=== PATIENT | male | born 1990 | race Caucasian/White ===

== ENCOUNTER → 2018-04-04 | Outpatient (CLI) | payer OTHER ==
[2018-04-04 11:01] LABS: ALT 48 U/L (21-72); AST 22 U/L (17-59); Blood Urea Nitrogen 15 mg/dL (9-20); C Reactive Protein 6.5 mg/L (<10.0); Uric Acid 7.1 mg/dL (3.5-8.5)
[2018-04-04 16:25] LABS: Rheumatoid Factor <4 IU/mL (0-15)
[2018-04-05 10:30] LABS: HLA B27 NEGATIVE
== END | disposition home or self-care (01) ==
LOC: LABWHC1 10:22
PROVIDERS: ATTEND Podiatrist
DX: M06.9 Rheumatoid arthritis, unspecified (principal)
CPT/HCPCS: 36415; 82565; 84450; 84460; 84520; 84550; 85652; 86038; 86140; 86431; 86812

== ENCOUNTER 2019-05-18 18:11 | Emergency (ER) | payer OTHER ==
[2019-05-18 18:27] VITALS: BP 124/80; PULSE 95; RESP 20; TEMP 98
[2019-05-18] MEDS ORDERED: TOPICAL SKIN ADHESIVE 1 EACH AMP TOPICAL ONE (18:37)
--- NOTE | 2019-05-18 18:49 | ED ---
General Adult HPI - General Chief complaint: Wound/Laceration Stated complaint: Thumb laceration Time Seen by Provider: 05/18/19 18:31 Source: patient, RN notes reviewed Mode of arrival: ambulatory Limitations: no limitations - History of Present Illness Initial comments: 28-year-old male presents to the emergency department for a chief of right thumb laceration. Patient states he was using an apple core when it slipped and cut the distal aspect of his right thumb. States he tried to glue it but it wouldn't stop bleeding. States he is up-to-date on tetanus. Denies any loss of sensation in the right thumb. Denies any difficulty moving the right thumb. States he did clean it out.Patient has no other complaints at this time including shortness of breath, chest pain, abdominal pain, nausea or vomiting, headache, or visual changes. - Related Data Allergies Allergy/AdvReac Type Severity Reaction Status Date / Time No Known Allergies Allergy Verified 05/18/19 18:26 Review of Systems ROS Statement: Those systems with pertinent positive or pertinent negative responses have been documented in the HPI. ROS Other: All systems not noted in ROS Statement are negative. Past Medical History Past Medical History: No Reported History History of Any Multi-Drug Resistant Organisms: None Reported Past Surgical History: No Surgical Hx Reported Past Psychological History: No Psychological Hx Reported Smoking Status: Current every day smoker Past Alcohol Use History: None Reported Past Drug Use History: None Reported General Exam Limitations: no limitations General appearance: alert, in no apparent distress Head exam: Present: atraumatic, normocephalic, normal inspection Eye exam: Present: normal appearance, PERRL, EOMI. Absent: scleral icterus, conjunctival injection, periorbital swelling ENT exam: Present: normal exam, mucous membranes moist Neck exam: Present: normal inspection, full ROM. Absent: tenderness, meningismus, lymphadenopathy Respiratory exam: Present: normal lung sounds bilaterally. Absent: respiratory distress, wheezes, rales, rhonchi, stridor Cardiovascular Exam: Present: regular rate, normal rhythm, normal heart sounds. Absent: systolic murmur, diastolic murmur, rubs, gallop, clicks Extremities exam: Present: full ROM (full Range motion of the right thumb including the MCP and IP joint.), normal capillary refill (Capillary refill less than 2 seconds in the right thumb, radial pulse 2+.), other (Patient has a 1 cm superficial laceration noted to the finger pad of the right thumb.). Absent: tenderness, pedal edema, joint swelling, calf tenderness Course Vital Signs 05/18/19 18:25 Temperature 98.0 F Pulse Rate 95 Respiratory 20 Rate Blood Pressure 124/80 O2 Sat by Pulse 97 Oximetry Procedures - Laceration Laceration #1 Consent Obtained: verbal consent Indication: laceration Site: other (Right thumb) Description: linear Depth: simple, single layer Pre-repair: irrigated extensively (With saline pressure irrigation) Type of Sutures: other (Exofin) Medical Decision Making - Medical Decision Making Patient has a superficial laceration noted to the right finger pad of the right thumb. Neurovascular status intact. I did offer to stitch this however patient prefers glue. Exofin was applied after his was cleaned out. Wound is well approximated. Patient is up-to-date on tetanus. He will follow up with primary care in 1-2 days and return if he has any worsening symptoms. Disposition Clinical Impression: Laceration Disposition: HOME SELF-CARE Condition: Good Instructions (If sedation given, give patient instructions): Laceration (ED), Skin Adhesive Care (ED) Additional Instructions: Please follow up with primary care in 1-2 days. Monitor for signs of infection such as spreading or streaking redness and return if these occur. Return if you have any other worsening symptoms. Is patient prescribed a controlled substance at d/c from ED?: No Referrals: Jonh Stone DO [Primary Care Provider] - 1-2 days Time of Disposition: 18:52
== END 2019-05-18 18:55 | disposition home or self-care (01) ==
LOC: EC 18:11
DX: S61.011A Laceration without foreign body of right thumb without damage to nail, initial encounter (principal); F17.200 Nicotine dependence, unspecified, uncomplicated; W26.8XXA Contact with other sharp object(s), not elsewhere classified, initial encounter; Y93.89 Activity, other specified
CPT/HCPCS: 12001; 99282

== ENCOUNTER 2019-05-20 01:25 | Emergency (ER) | payer OTHER ==
[2019-05-20 01:31] VITALS: BP 130/82; PULSE 82; RESP 18; TEMP 98.1
--- NOTE | 2019-05-20 01:43 | ED ---
Wound/Laceration HPI - General Chief Complaint: Wound/Laceration Stated Complaint: Thumb lac-revisit Time Seen by Provider: 05/20/19 01:35 Source: patient Mode of arrival: ambulatory Limitations: no limitations - History of Present Illness Initial Comments: 28-year-old male patient presents to the emergency department today for evaluation of laceration to the right thumb. Patient states he cut it on Saturday with an apple corer. Patient was seen and evaluated here yesterday for this and did have the laceration glued. Patient states that the laceration opened today and has been intermittently bleeding since. Denies any significant pain to the area. Denies any drainage of pus. Denies any use of anticoagulant or antiplatelet medications. Denies any other injuries. Patient denies any headache, neck pain, back pain, chest pain, shortness of breath, dizziness, weakness, abdominal pain, nausea, vomiting, or difficulties with bowel movements or urination. - Related Data Allergies Allergy/AdvReac Type Severity Reaction Status Date / Time No Known Allergies Allergy Verified 05/20/19 01:31 Review of Systems ROS Statement: Those systems with pertinent positive or pertinent negative responses have been documented in the HPI. ROS Other: All systems not noted in ROS Statement are negative. Past Medical History Past Medical History: No Reported History History of Any Multi-Drug Resistant Organisms: None Reported Past Surgical History: No Surgical Hx Reported Past Psychological History: No Psychological Hx Reported Smoking Status: Current every day smoker Past Alcohol Use History: None Reported Past Drug Use History: None Reported General Exam Limitations: no limitations General appearance: alert, in no apparent distress, other (Physical well- developed, well-nourished adult male patient in no acute distress. Vital signs upon presentation are temperature 98.1F, pulse 82, respirations 18, blood pressure 130/82, pulse ox 96% on room air.) Eye exam: Present: normal appearance, PERRL, EOMI. Absent: scleral icterus, conjunctival injection, periorbital swelling Respiratory exam: Present: normal lung sounds bilaterally. Absent: respiratory distress, wheezes, rales, rhonchi, stridor Cardiovascular Exam: Present: regular rate, normal rhythm, normal heart sounds. Absent: systolic murmur, diastolic murmur, rubs, gallop, clicks Extremities exam: Present: other (Left thumb laceration, 2 cm, no active bleeding. Skin is pink, warm, dry. Cap refills less than 3 seconds. Radial pulses 2+ and equal bilaterally. No erythema or warmth. Full range of motion intact.). Absent: normal inspection Neurological exam: Present: alert, oriented X3, CN II-XII intact Psychiatric exam: Present: normal affect, normal mood Skin exam: Present: warm, dry, intact, normal color. Absent: rash Course Vital Signs 05/20/19 01:28 Temperature 98.1 F Pulse Rate 82 Respiratory 18 Rate Blood Pressure 130/82 O2 Sat by Pulse 96 Oximetry Medical Decision Making - Medical Decision Making 28-year-old male patient presents to the emergency department today for evaluation of laceration. Patient did have the laceration repaired utilizing skin adhesive yesterday. States today the laceration broke open and has been bleeding intermittently. Given the timing of the laceration we will leave open to heal by secondary intention. Did apply dressing. He is instructed to keep the wound clean and dry. Discussed wound care. Educated regarding signs or symptoms of infection. He is instructed to follow-up with his primary care physician for recheck in 1-2 days. Return parameters discussed in detail. He verbalizes understanding and agrees with this plan. Disposition Clinical Impression: Laceration of right thumb Disposition: HOME SELF-CARE Condition: Good Instructions (If sedation given, give patient instructions): Laceration (ED) Additional Instructions: Keep wound clean and dry. Monitor for redness, swelling, drainage of pus, fever, or chills. Follow up with the primary care physician for recheck in 1-2 days. Return for any other new, worsening, or concerning symptoms. Is patient prescribed a controlled substance at d/c from ED?: No Referrals: Jonh Stone DO [Primary Care Provider] - 1-2 days Time of Disposition: 01:43
== END 2019-05-20 02:04 | disposition home or self-care (01) ==
LOC: EC 01:25
DX: S61.011D Laceration without foreign body of right thumb without damage to nail, subsequent encounter (principal); F17.200 Nicotine dependence, unspecified, uncomplicated; W27.8XXD Contact with other nonpowered hand tool, subsequent encounter
CPT/HCPCS: 99282

== ENCOUNTER 2019-08-01 10:47 | Inpatient (IN) | payer OTHER ==
[2019-08-01] MEDS ORDERED: KETOROLAC 30 MG/ML 1 ML VIAL IVP STA ×2 (10:58→11:07)
[2019-08-01] MEDS ORDERED: SODIUM CHLORIDE 0.9% 1,000 ML IV STA (10:58)
[2019-08-01] MEDS ORDERED: ASPIRIN 81 MG PO STA (11:04)
--- NOTE | 2019-08-01 11:06 | ED ---
Chest Pain HPI - General Source: patient, RN notes reviewed, old records reviewed Mode of arrival: wheelchair Limitations: no limitations <Lexi Johnson - Last Filed: 08/01/19 11:38> <Bandar Gan - Last Filed: 08/01/19 12:19> - General Chief Complaint: Chest Pain Stated Complaint: Chest pain Time Seen by Provider: 08/01/19 10:53 - History of Present Illness Initial Comments: This is a 28-year-old male who presents emergency department today for evaluation for concern for waking up with sternal chest pain. Patient reports pain is worse with taking deep breath. Patient reports that he had his teeth on his upper jaw are removed 2 days ago. He states there had pain such as this sharp and crushing pain before. Patient states he does have some pain down his left arm as well. Patient states he does feel somewhat weak lightheaded and nauseated. Patient reports he's had a history of pericarditis in the past. He is a smoker. His previous doubt this with Dr. Nicolas. (Lexi Johnson) - Related Data Home Medications Medication Instructions Recorded Confirmed Acetaminophen-Codeine 300-30mg 1 tab PO QID PRN 08/01/19 08/01/19 [Tylenol w/codeine #3] Amoxicillin 500 mg PO TID 08/01/19 08/01/19 Ibuprofen [Motrin] 800 mg PO Q6H PRN 08/01/19 08/01/19 Allergies Allergy/AdvReac Type Severity Reaction Status Date / Time No Known Allergies Allergy Verified 08/01/19 11:08 Review of Systems ROS Other: All systems not noted in ROS Statement are negative. <Lexi Johnson - Last Filed: 08/01/19 11:38> ROS Other: All systems not noted in ROS Statement are negative. <Bandar Gan - Last Filed: 08/01/19 12:19> ROS Statement: Those systems with pertinent positive or pertinent negative responses have been documented in the HPI. EKG Findings - EKG Comments: EKG Findings:: EKG shows normal sinus rhythm with ST elevations or anterolateral injury or acute infarct. ST shows inferior injury. Ventricular rate of 73 bpm. Pulse 124. Stressors 903 QT QTc is 3:30/35 most seconds. Interpretation is acute MS or STEMI. <Lexi Johnson - Last Filed: 08/01/19 11:38> Past Medical History Past Medical History: No Reported History History of Any Multi-Drug Resistant Organisms: None Reported Past Surgical History: No Surgical Hx Reported Past Psychological History: No Psychological Hx Reported Smoking Status: Current every day smoker Past Alcohol Use History: None Reported Past Drug Use History: None Reported <Lexi Johnson - Last Filed: 08/01/19 11:38> General Exam Limitations: no limitations General appearance: alert, in no apparent distress Head exam: Present: atraumatic, normocephalic, normal inspection Eye exam: Present: normal appearance, PERRL, EOMI. Absent: scleral icterus, conjunctival injection, periorbital swelling ENT exam: Present: normal exam, mucous membranes moist Neck exam: Present: normal inspection. Absent: tenderness, meningismus, lymphadenopathy Respiratory exam: Present: normal lung sounds bilaterally. Absent: respiratory distress, wheezes, rales, rhonchi, stridor <Lexi Johnson - Last Filed: 08/01/19 11:38> - General Exam Comments Initial Comments: 28-year-old male. Patient appears somewhat pale. (Lexi Johnson) Course <Bandar Gan - Last Filed: 08/01/19 12:19> Vital Signs 08/01/19 08/01/19 08/01/19 10:50 11:13 11:15 Temperature 98.6 F Pulse Rate 76 89 78 Respiratory 16 18 17 Rate Blood Pressure 102/69 113/73 105/70 O2 Sat by Pulse 98 99 Oximetry 08/01/19 08/01/19 11:16 11:31 Temperature Pulse Rate 80 Respiratory 18 17 Rate Blood Pressure 111/78 O2 Sat by Pulse 99 Oximetry - Reevaluation(s) Reevaluation #1: 08/01/19 11:00 Patient immediately evaluated after EKG is performed. There is ST segment elevation lateral precordial leads as well as lead 1, and depression in aVR and V1. seed laboratory assistant is activated, I discussed case with cardiology Dr. Nicolas. Stat echo was ordered. He is given aspirin and Toradol. Dr. Nicolas is able to evaluate the patient in the emergency department and believes this is more likely pericarditis. He cancels the slab conditioner supervisor activation. (Bandar Gan) Reevaluation #2: 08/01/19 12:19 EKG obtained at 1111 showing normal sinus rhythm, persistent ST segment elevation in the lateral precordial leads as well as lead 1, lead 2, and aVL. Depression in aVR and V1. Rate of 83, NC interval 124, QRS duration 86, QTC 406 (Bandar Gan) Chest Pain MDM <Lexi Johnson - Last Filed: 08/01/19 11:38> - MDM 28-year-old male presents with onset of substernal chest pain. Symptoms started upon awakening this morning. He said history of pericarditis in the past. He is a smoker. EKG showed initial ST elevation concerning for acute MS. Patient case was probably discussed with Dr. Carmichael whom activated STEMI. Dr. Nicolas was here to evaluate the Patient is more consistent with pericarditis. Patient is given Toradol and aspirin at this time. Patient will be under medical management slab conditioner supervisor was canceled. Patient will be admitted at this time. Patient was given colchicine as well per Dr. Nicolas. (Lexi Johnson) Disposition Is patient prescribed a controlled substance at d/c from ED?: No Time of Disposition: 11:40 <Lexi Johnson - Last Filed: 08/01/19 11:38> <Bandar Gan - Last Filed: 08/01/19 12:19> Clinical Impression: Pericarditis Disposition: ADMITTED IP TO THIS HOSP Condition: Stable
[2019-08-01 11:10] LABS: Basophils # (A) 0.1 k/uL (0-0.2); Basophils % (A) 0 %; Eosinophils # (A) 0.2 k/uL (0-0.7); Eosinophils % (A) 2 %; HCT 40.9 % (39.0-53.0); HGB 14.1 gm/dL (13.0-17.5); Lymphocytes # (A) 2.3 k/uL (1.0-4.8); Lymphocytes % (A) 18 %; MCH 31.5 pg (25.0-35.0); MCHC 34.5 g/dL (31.0-37.0); MCV 91.4 fL (80.0-100.0); Mean Platelet Volume 8.8; Monocytes # (A) 1.2 k/uL (0-1.0); Monocytes % (A) 9 %; Neutrophils # (A) 8.6 k/uL (1.3-7.7); Neutrophils % (A) 67 %; Platelet Count 185 k/uL (150-450); RBC 4.47 m/uL (4.30-5.90); RDW 11.8 % (11.5-15.5); WBC 12.8 k/uL (3.8-10.6)
--- NOTE | 2019-08-01 11:20 | XR ---
EXAMINATION TYPE: XR chest 1V DATE OF EXAM: 08/01/2019 HISTORY: Chest Pain. REFERENCE: Previous study dated 07/25/2005. FINDINGS: The lungs remain clear. Pleural spaces are clear. The heart is not enlarged. IMPRESSION: NO ACTIVE INTRATHORACIC DISEASE.
[2019-08-01] MEDS ORDERED: HYDROmorphone 0.5 MG/0.5 ML SYRINGE IVP STA ×4 (11:21→19:34)
[2019-08-01 11:25] LABS: D-Dimer 0.36 mg/L FEU (<0.60); INR 0.9 (<1.2); Partial Thromboplastin Time 27.2 sec (22.0-30.0); Prothrombin Time 9.8 sec (9.0-12.0)
[2019-08-01] MEDS ORDERED: INDOMETHACIN 25 MG CAP PO STA (11:28)
[2019-08-01] MEDS ORDERED: HEPARIN SODIUM,PORCINE 5,000 UNIT/ML 1 ML VIAL SQ SCH (11:30)
[2019-08-01 11:35] LABS: ALT 36 U/L (4-49); AST 93 U/L (17-59); African American GFR (CKD) >90 (>60 ml/min/1.73 sqM); Alkaline Phosphatase 76 U/L (38-126); Anion Gap 9 mmol/L; Blood Urea Nitrogen 13 mg/dL (9-20); Calcium 8.9 mg/dL (8.4-10.2); Carbon Dioxide 26 mmol/L (22-30); Chloride 103 mmol/L (98-107); Glucose 123 mg/dL (74-99); Non-African American GFR(CKD) >90 (>60 ml/min/1.73 sqM); Potassium 3.6 mmol/L (3.5-5.1); Sodium 138 mmol/L (137-145); Total Bilirubin 0.6 mg/dL (0.2-1.3)
[2019-08-01] MEDS ORDERED: POTASSIUM CHLORIDE ER 20 MEQ TAB.ER PO STA (11:36)
[2019-08-01] MEDS ORDERED: NITROGLYCERIN SL TABS 0.4 MG TAB SUBLINGUAL PRN (11:43)
[2019-08-01] MEDS ORDERED: HEPARIN SODIUM,PORCINE 5,000 UNIT/ML 1 ML VIAL IV STA (12:21)
[2019-08-01] MEDS ORDERED: HEPARIN SOD,PORK IN 0.45% NACL 25,000 UNIT in 0.45% NACL 1 250ML.BAG IV SCH (12:30)
--- NOTE | 2019-08-01 12:51 | CONS ---
CONSULTATION This patient is a 28-year-old gentleman who apparently has a remote history in 2007 of pericarditis. He came into the hospital having woken up from sleep around 5:00 with discomfort in the chest. He complained that the pain woke him up and it is more or less sharp in nature, worse when he lies back, better leaning forward and also respirophasic. When he takes a deep breath, he does have discomfort in the chest. A STEMI alert was called, but I went and reviewed the EKG, noted that there was a J-point elevation with concavity in almost all leads with a UT depression, and clinical picture was more of pericarditis. I am recommending that we not darby him into the specialist employee labor relations and instead obtain echocardiogram and additional blood work, and if troponin shows a significant rise, I would cath him, but I would not darby him to the specialist employee labor relations at this time. I explained this to the patient as well as his . I will order an echocardiogram, give him some nonsteroidals and Dilaudid for pain control and colchicine. PAST MEDICAL HISTORY: Remote history of pericarditis. He recently in the last week had some dental work performed and has not been eating well. ALLERGIES: NONE. MEDICATIONS: Medications include amoxicillin and ibuprofen. PHYSICAL EXAMINATION: Blood pressure is 118/70, pulse rate is 70 per minute. HEENT unremarkable. Fundus was not examined by me. Neck is supple. JVD is unremarkable. No carotid bruit. Heart exam reveals S1, S2 heard normally. No rub, murmur or gallop. Lungs are clear. Abdomen is soft, nontender. Lower extremities reveal palpable pulses. No edema. Central nervous system is normal. EKG revealed a sinus mechanism with J-point prominence and ST elevation in leads I, aVL, as well as V5 and V6. There is some concavity and there is UT depression. IMPRESSION: 1. Chest pain syndrome, pleuritic in nature, with respirophasic quality of pain and EKG suggestive of probable pericarditis. 2. Cannot exclude myocardial ischemia, but seems less likely. 3. History of remote pericarditis. RECOMMENDATIONS: I am recommending an echocardiogram and troponins, and if the patient's quality of chest pain changes or if the troponin is significantly elevated, I will perform cardiac cath but will first do an echocardiogram, and based on findings make recommendations. Discussed my thoughts in detail with the patient and his . Thank you very much for the consult. RD / IJN: [id number] /
[2019-08-01] MEDS ORDERED: IV FLUID CONTINUATION 950 ML IV ONE (13:32)
[2019-08-01] MEDS ORDERED: LIDOCAINE 1% INJ 10MG/ML (20 ML MDV) ONE (13:45)
[2019-08-01] MEDS ORDERED: VERAPAMIL 2.5 MG/ML 2 ML AMP ONE (13:45)
[2019-08-01] MEDS: MIDAZOLAM 2 MG/2 ML VIAL IV ONE ×2 (13:58→14:13)
[2019-08-01] MEDS ORDERED: LIDOCAINE 1% INJ 10MG/ML (20 ML MDV) SQ ONE (14:09)
[2019-08-01] MEDS ORDERED: HEPARIN SODIUM 1,000 UN/ML (10ML VL) ONE (14:11)
[2019-08-01] MEDS ORDERED: VERAPAMIL SYRINGE (5 MG/10 ML) IV ONE (14:12)
[2019-08-01] MEDS ORDERED: HEPARIN SODIUM 1,000 UN/ML (10ML VL) IV ONE (14:12)
[2019-08-01] MEDS ORDERED: NITROGLYCERIN 1000MCG/10ML SYRINGE INTRACORON ONE (14:19)
[2019-08-01] MEDS ORDERED: IOPAMIDOL-370 100ML BTL INJ ONE (14:23)
[2019-08-01] MEDS: SODIUM CHLORIDE 0.9% 1,000 ML IV SCH ×2 (15:21→22:53)
--- NOTE | 2019-08-01 15:47 | CC ---
CARDIAC CATHETERIZATION REPORT DATE OF SERVICE: 08/01/2019 PROCEDURE: Left heart catheterization and coronary angiography. PERFORMED BY: Dr. Neha Nicolas. Moderate conscious sedation time was 16 minutes. Patient was administered Versed. His oxygen saturation, hemodynamics and EKG were monitored closely. CLINICAL INFORMATION: Nick Beck is a 28-year-old gentleman admitted through the emergency room with chest pain, pleuritic in nature. Clinical picture was that of pericarditis, but his troponin went up to 15 and he continued to have pain. Therefore he was advised cardiac cath after due discussion regarding rationale, risks, benefits and options. PROCEDURE NOTE: Under local anesthesia and strict aseptic precautions, a 6-Greek introducer was placed in the right radial artery. Using a standard right and a JL3.5 catheters, I performed selective coronary angiography, and the same right catheter was used to check LV pressures. LV gram was not performed. Sheath was taken out and TR band applied as per protocol. Saturation in the fingers of the right hand was 96%. Patient tolerated the procedure well without complications. He received some intracoronary nitroglycerin. He received intravenous heparin as per protocol. CARDIAC CATHETERIZATION FINDINGS: The left ventricular end-diastolic pressure was 16 mmHg without any gradient across the aortic valve. CORONARY ANGIOGRAPHY FINDINGS: RIGHT CORONARY ARTERY: Large dominant vessel. No significant disease. Distally bifurcates into larger PDA. Smaller PLV has minor irregularities, but no significant obstructive disease is noted. LEFT MAIN CORONARY ARTERY: This is a short, patent, disease-free vessel that immediately bifurcates into LAD and circumflex. LEFT ANTERIOR DESCENDING CORONARY ARTERY: This is a large-caliber, large-distribution vessel. Very high first diagonal comes off free of significant disease. It almost runs in the circumflex distribution, has no significant disease. LAD then continues on and gives off a second diagonal which is also free of significant disease, then gives off several septal branches, and in the distal one fourth the LAD is small in caliber, has some diffuse disease but no significant obstruction. The first diagonal is large in distribution, almost goes laterally in the circumflex distribution. No significant disease. Second diagonal is also free of significant disease. Distal circumflex has diffuse disease. LEFT POSTERIOR CIRCUMFLEX CORONARY ARTERY: Very small nondominant vessel gives off a single obtuse marginal and an AV groove branch, has minor irregularities. Left ventriculogram was not performed. FINAL IMPRESSION: This patient has a right-dominant system. No significant disease in the RCA or in the small nondominant circumflex. LAD has 2 large diagonal branches free of significant disease. The distal one fourth of LAD has diffuse disease but no significant obstructive CAD noted. Filling pressures are slightly elevated, but there is no gradient across the aortic valve. RECOMMENDATIONS: Findings were discussed with the patient and his . I am recommending that we will treat his myopericarditis with colchicine, defer intravenous heparin and advise the patient that he should refrain from smoking and use of marijuana because there was a significant spasm. After I gave intracoronary nitroglycerin, the left coronary system, specifically the LAD and its branches, were quite large. This was explained to the patient and his . RD / FRANKLINN: [id number] /
[2019-08-01] MEDS: COLCHICINE 0.6 MG EACH PO SCH ×2 (16:23→21:11)
--- NOTE | 2019-08-01 16:28 | ECHOF ---
Referral Reason:chest pain, stemi, pericarditis hx MEASUREMENTS -------- HEIGHT: 180.3 cm WEIGHT: 85.7 kg BP: 111/78 RVIDd: 3.4 cm (< 3.3) IVSd: 1.1 cm (0.6 - 1.1) LVIDd: 4.8 cm (3.9 - 5.3) LVPWd: 0.9 cm (0.6 - 1.1) IVSs: 1.4 cm LVIDs: 3.9 cm LVPWs: 1.3 cm LA Diam: 3.8 cm (2.7 - 3.8) Ao Diam: 3.0 cm (2.0 - 3.7) AV Cusp: 2.2 cm (1.5 - 2.6) MV EXCURSION: 18.221 mm (> 18.000) MV EF SLOPE: 176 mm/s (70 - 150) EPSS: 0.4 cm MV E Landon: 0.77 m/s MV DecT: 100 ms MV A Landon: 0.51 m/s MV E/A Ratio: 1.52 RAP: 5.00 mmHg RVSP: 23.14 mmHg FINDINGS -------- Sinus rhythm. This was a technically good study. The left ventricular size is normal. Left ventricular wall thickness is normal. Overall left vent ricular systolic function is normal with, an EF between 55 - 60 %. The right ventricle is mildly enlarged. The left atrial size is normal. The right atrium is normal in size. Interatrial and interventricular septum intact. The aortic valve is trileaflet and appears structurally normal. The mitral valve is normal. The tricuspid valve appears structurally normal. There is no pulmonic regurgitation present. The aortic root size is normal. Normal inferior vena cava with normal inspiratory collapse consistent with estimated right atrial pre ssure of 5 mmHg. There is no pericardial effusion. CONCLUSIONS -------- 1. Sinus rhythm. 2. This was a technically good study. 3. The left ventricular size is normal. 4. Left ventricular wall thickness is normal. 5. Overall left ventricular systolic function is normal with, an EF between 55 - 60 %. 6. The right ventricle is mildly enlarged. 7. The left atrial size is normal. 8. The right atrium is normal in size. 9. Interatrial and interventricular septum intact. 10. The aortic valve is trileaflet and appears structurally normal. 11. The mitral valve is normal. 12. The tricuspid valve appears structurally normal. 13. There is no pulmonic regurgitation present. 14. The aortic root size is normal. 15. Normal inferior vena cava with normal inspiratory collapse consistent with estimated right atrial pressure of 5 mmHg. 16. There is no pericardial effusion. DIRECTOR OF DEMENTIA OPERATIONS: Catihe Max RDCS
[2019-08-01] MEDS: METOPROLOL TARTRATE 12.5 MG TAB PO SCH ×3 (17:07→21:11)
[2019-08-01] MEDS: Acetaminophen-Codeine 300-30mg TAB PO PRN (17:36)
[2019-08-01] MEDS: PANTOPRAZOLE 40 MG TABLET PO SCH (17:37)
[2019-08-01] MEDS: HEPARIN SODIUM,PORCINE 5,000 UNIT/ML 1 ML VIAL SQ SCH ×2 (17:37→22:48)
[2019-08-01] MEDS: IBUPROFEN 800 MG TAB PO PRN (18:46)
--- NOTE | 2019-08-01 20:17 | CT ---
EXAMINATION TYPE: CT angio chest DATE OF EXAM: 08/01/2019 COMPARISON: HISTORY: chest pain. dissection vs PE CT DLP: 938.1 mGycm Automated exposure control for dose reduction was used. CONTRAST: Performed without and with IV Contrast, patient injected with 100 mL of Isovue 370. There are 3-D post processed images. There is some patchy infiltrate and atelectasis at the lung bases. There is no pleural effusion. Hear t size is normal. There is no pericardial effusion. There is normal contrast opacification of the pul monary arteries. There are no filling defects. Thoracic aorta appears normal. There is no mediastinal adenopathy. There are no hilar masses. There are a few bronchial lymph nodes that measure up to 1 cm. Bony thorax is intact. IMPRESSION: No evidence of pulmonary embolism. Bilateral lower lobe pulmonary infiltrates and atelectasis.
[2019-08-01] MEDS ORDERED: MELATONIN 3 MG TABLET PO PRN (21:05)
[2019-08-01] MEDS: AMOXICILLIN 500 MG CAP PO SCH (21:12)
[2019-08-02] MEDS ORDERED: SODIUM CHLORIDE 0.9% 500 ML 250 ML IV ONE (02:42)
[2019-08-02] MEDS ORDERED: SODIUM CHLORIDE 0.9% 1,000 ML IV SCH (02:45)
[2019-08-02] MEDS: IBUPROFEN 800 MG TAB PO PRN (04:56)
[2019-08-02 06:09] LABS: Basophils % (A) 1 %; Eosinophils # (A) 0.1 k/uL (0-0.7); Eosinophils % (A) 2 %; HCT 33.4 % (39.0-53.0); HGB 11.3 gm/dL (13.0-17.5); Lymphocytes # (A) 2.4 k/uL (1.0-4.8); Lymphocytes % (A) 40 %; MCH 31.6 pg (25.0-35.0); Monocytes # (A) 0.5 k/uL (0-1.0); Monocytes % (A) 7 %; Neutrophils # (A) 2.8 k/uL (1.3-7.7); Neutrophils % (A) 46 %; Platelet Count 133 k/uL (150-450); RBC 3.59 m/uL (4.30-5.90); WBC 6.1 k/uL (3.8-10.6)
[2019-08-02] MEDS: PANTOPRAZOLE 40 MG TABLET PO SCH (06:09)
[2019-08-02 06:20] LABS: African American GFR (CKD) >90 (>60 ml/min/1.73 sqM); Anion Gap 5 mmol/L; Blood Urea Nitrogen 7 mg/dL (9-20); Calcium 8.4 mg/dL (8.4-10.2); Carbon Dioxide 25 mmol/L (22-30); Chloride 107 mmol/L (98-107); Cholesterol 120 mg/dL (<200); Glucose 107 mg/dL (74-99); HDL Cholesterol 24 mg/dL (40-60); LDL Cholesterol,Calculated 63 mg/dL (0-99); Non-African American GFR(CKD) >90 (>60 ml/min/1.73 sqM); Sodium 137 mmol/L (137-145); Triglycerides 163 mg/dL (<150)
[2019-08-02] MEDS: METOPROLOL TARTRATE 12.5 MG TAB PO SCH ×2 (08:41→20:31)
[2019-08-02] MEDS: Acetaminophen-Codeine 300-30mg TAB PO PRN ×3 (08:44→20:31)
[2019-08-02] MEDS: COLCHICINE 0.6 MG EACH PO SCH ×2 (08:45→20:30)
[2019-08-02] MEDS: HEPARIN SODIUM,PORCINE 5,000 UNIT/ML 1 ML VIAL SQ SCH ×2 (08:45→20:30)
[2019-08-02] MEDS: AMOXICILLIN 500 MG CAP PO SCH ×3 (08:45→20:30)
[2019-08-02] MEDS ORDERED: ASPIRIN 81 MG PO SCH (09:00)
[2019-08-02] MEDS ORDERED: ASPIRIN 325 MG TAB PO SCH (09:00)
--- NOTE | 2019-08-02 12:12 | P.PN ---
Subjective This is a pleasant 28-year-old male with history of pericarditis past, chronic nicotine dependence and he did admit to regular marijuana use. He presented to the hospital with significant pleuritic chest pain, EKG changes suggestive of pericarditis and troponin elevation. He underwent cardiac catheterization yesterday with Dr. Nicolas revealing RCA with no significant disease, left main with no significant disease, LAD with no significant obstructive disease. He states he had a particularly uncomfortable evening with frequent bouts of significant pleuritic chest pain. He was given Dilaudid which did relieve his pain briefly. He is seen and examined sitting up in bed in no acute distress. He is currently chest pain-free. Denies shortness of breath, dizziness or palpitations. Telemetry tracings reviewed last evening at 2:21 AM he had a 12 beat run of wide-complex monomorphic ventricular tachycardia. CT of the chest is negative for pulmonary embolism with lower lobe infiltrates and atelectasis. Blood pressure 95/52 with a heart rate of 81 afebrile maintaining oxygen saturation on room air. Laboratory data reviewed, WBC 6.1, hemoglobin 11.3, platelets 133, sodium 137, potassium 4.0, creatinine 0.6. Currently main tained on aspirin 81 mg daily, colchicine 0.6 mg twice a day, Motrin 800 mg 4 times a day when necessary, metoprolol 12.5 mg 3 times a day. Echocardiogram reveals preserved LV systolic function with ejection fraction 55-60% with no pericardial effusion. GENERAL: Well-appearing, well-nourished and in no acute distress. NECK: Supple without JVD or thyromegaly. LUNGS: Breath sounds clear to auscultation bilaterally. Respiration equal and unlabored. No wheezes, rales or rhonchi. HEART: Regular rate and rhythm without murmurs, rubs or gallops. S1 and S2 heard. EXTREMITIES: Normal range of motion, no edema. No clubbing or cyanosis. Peripheral pulses intact. ASSESSMENT Myopericarditis Nonsustained monomorphic ventricular tachycardia PLAN Continue colchicine and ibuprofen as previously ordered. Decrease lopressor to 12.5 mg BID secondary to some low blood pressures. This may be secondary to IV pain medications as well. Decrease IV fluids to 50cc/hr. Check another troponin level now. Repeat full echocardiogram and chest xray tomorrow. Check for coxsackie virus. Request consultation from infectious disease. Further recommendations to follow. Nurse Practitioner note has been reviewed, I agree with a documented findings and plan of care. Patient was seen and examined. Objective - Vital Signs Vital signs: Vital Signs Temp 98.8 F 08/02/19 08:00 Pulse 81 08/02/19 08:00 Resp 20 08/02/19 08:00 BP 95/52 08/02/19 08:00 Pulse Ox 98 08/02/19 08:00 Intake & Output 08/01/19 08/02/19 08/02/19 18:59 06:59 18:59 Intake Total 415 600 Output Total 150 Balance 265 600 Weight 76.657 kg 86.7 kg Intake: IV 175 Intake, IV Titration 600 Amount Sodium Chloride 0.9% 1, 600 000 ml @ 75 mls/hr IV . [id number] Rx#:[id number] Oral 240 Output: Urine 150 Other: Voiding Method Urinal Toilet Urinal # Voids 1 - Labs CBC & Chem 7: 08/02/19 05:45 08/02/19 05:45 Labs: Abnormal Lab Results - Last 24 Hours (Table) 08/01/19 08/01/19 08/01/19 Range/Units 11:07 11:07 11:07 WBC 12.8 H (3.8-10.6) k/uL RBC (4.30-5.90) m/uL Hgb (13.0-17.5) gm/dL Hct (39.0-53.0) % Plt Count (150-450) k/uL Neutrophils # 8.6 H (1.3-7.7) k/uL Monocytes # 1.2 H (0-1.0) k/uL BUN (9-20) mg/dL Creatinine (0.66-1.25) mg/dL Glucose 123 H (74-99) mg/dL AST 93 H (17-59) U/L Troponin I 15.000 H* (0.000-0.034) ng/mL Triglycerides (<150) mg/dL HDL Cholesterol (40-60) mg/dL 08/01/19 08/01/19 08/02/19 Range/Units 17:32 22:44 05:45 WBC (3.8-10.6) k/uL RBC (4.30-5.90) m/uL Hgb (13.0-17.5) gm/dL Hct (39.0-53.0) % Plt Count (150-450) k/uL Neutrophils # (1.3-7.7) k/uL Monocytes # (0-1.0) k/uL BUN 7 L (9-20) mg/dL Creatinine 0.63 L (0.66-1.25) mg/dL Glucose 107 H (74-99) mg/dL AST (17-59) U/L Troponin I 25.100 H* 33.500 H* (0.000-0.034) ng/mL Triglycerides 163 H (<150) mg/dL HDL Cholesterol 24 L (40-60) mg/dL 08/02/19 Range/Units 05:45 WBC (3.8-10.6) k/uL RBC 3.59 L (4.30-5.90) m/uL Hgb 11.3 L (13.0-17.5) gm/dL Hct 33.4 L (39.0-53.0) % Plt Count 133 L (150-450) k/uL Neutrophils # (1.3-7.7) k/uL Monocytes # (0-1.0) k/uL BUN (9-20) mg/dL Creatinine (0.66-1.25) mg/dL Glucose (74-99) mg/dL AST (17-59) U/L Troponin I (0.000-0.034) ng/mL Triglycerides (<150) mg/dL HDL Cholesterol (40-60) mg/dL
[2019-08-02] MEDS: SODIUM CHLORIDE 0.9% 1,000 ML IV SCH (12:16)
--- NOTE | 2019-08-02 21:06 | P.HPIM ---
History of Present Illness H&P Date: 08/02/19 Chief Complaint: Chest pain History of presenting complaint: This is a pleasant 28-year-old patient who is you have with several family members including his . Follows with Dr. Milly Stone. Patient had an episode of pericarditis in 2006. Patient's 4-year-old child just recovered from pneumonia and respiratory 62 L infection about a week ago. Patient also had d ental surgery done on the upper jaw bone removed some tumor done on 2 sessions on Saturday and Saturday. Yesterday he shouldn't felt a pressure-like sensation in his back and shoulders and started noting is anteriorly. He felt a squeezing sensation around the heart. As if a snake was wrapped around it. Short of breath. Perspiring chloric up in the ER. No fever no chills. Patient does smoke half a pack a day. Denies use of any recreational drugs. Admitted with a diagnosis of acute myocarditis. 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 Coronary arteries were normal. Vasopressin was detected by using nitroglycerin. Review of systems: GEN.: Tired EYES: None HEENT: None NECK: None RESPIRATORY: As above CARDIOVASCULAR: Has above GASTROINTESTINAL: None GENITOURINARY: None MUSCULOSKELETAL: None LYMPHATICS: None HEMATOLOGICAL: None PSYCHIATRY: None NEUROLOGICAL: None Past medical history to include: Myocarditis Social history: , has a and 4-year-old son. Works at [employer]. Smokes half a pack a day. Alcohol rarely. Denies use of any recreational drugs. Has tried marijuana once or twice. No oicx-gel-akoldsw drugs Physical examination: VITAL SIGNS: 98.6, 76, 16, 102/69, 98% room air GENERAL: BMI 26.7, sitting up a bit tired. EYES: Pupils equal. Conjunctiva normal. HEENT: External appearance of nose and ears normal, oral cavity grossly normal. NECK: JVD not raised; masses not palpable. HEART: First and second heart sounds are normal; no edema. LUNGS: Respiratory rate normal; clear to auscultation. ABDOMEN: Soft, nontender, liver spleen not palpable, no masses palpable. PSYCH: Alert and oriented x3; mood and affect normal. NEUROLOGICAL: Cranial nerves grossly intact; no facial asymmetry, power and sensation grossly intact. LYMPHATICS: No lymph nodes palpable in the axilla and neck INVESTIGATIONS, reviewed in the clinical context: White count 12.8 hemoglobin 40.1 repeat 7.3 potassium 3.6 BUN 13 creatinine 0.73 Troponin I 15, 25, 33 CRP 61.9 EKG tracing personally reviewed by me-hyperlipidemia T waves and ST elevation with cove elevation in anterior leads 2-D echo-no wall motion abnormality. EF 50-60% Chest x-ray film personally reviewed by me-lung balbuena clear Assessment: -This is a patient presented with 2 days of severe chest pressure with critically elevated troponins and EKG changes, with negative cardiac catheterization some element of coronary vasospasm. Patient's 4-year-old son discovering from a viral infection and pneumonia and also had dental work done. Clinical picture is suggestive of acute myocarditis possibly viral -Coronary vessel spasm -Chronic nicotine dependence cigarette smoker -Cardiac catheterization showing normal coronaries Plan: Patient is on colchicine Lopressor IV fluids. Patient has been receiving amoxicillin for his dental surgery. We'll also had NSAIDs. Infection disease was consulted. Patient's picture more often for infectious process given the elevated white count. Start the patient on naproxen 250 mg 3 times a day. DVT prophylaxis. Care was discussed with the patient and family the bedside. 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 Past Anesthesia/Blood Transfusion Reactions: No Reported Reaction Past Psychological History: No Psychological Hx Reported Smoking Status: Current every day smoker Past Alcohol Use History: None Reported Additional Past Alcohol Use History / Comment(s): PATIENT STATES HAS SMOKING CESSATION INFORMATION AND HAS ALCOHOLIC DRINK ABOUT EVERY 6 MONTHS, AND STATES TRIED MARIJAUNA ONE TIME Past Drug Use History: None Reported - Past Family History Father Family Medical History: GERD/Reflux, Myocardial Infarction ([place]), Rheumatoid Arthritis ([place]) Additional Family Medical History / Comment(s): BROKEN BACK DUE TO MVA IN [place], TEETH REMOVED FOR CANCER IN [place] Brother(s) Additional Family Medical History / Comment(s): TWIN BROTHER, SPINA BIFIDA Medications and Allergies Home Medications Medication Instructions Recorded Confirmed Type Acetaminophen-Codeine 300-30mg 1 tab PO QID PRN 08/01/19 08/01/19 History [Tylenol w/codeine #3] Amoxicillin 500 mg PO TID 08/01/19 08/01/19 History Ibuprofen [Motrin] 800 mg PO Q6H PRN 08/01/19 08/01/19 History Allergies Allergy/AdvReac Type Severity Reaction Status Date / Time No Known Allergies Allergy Verified 08/01/19 11:08 Physical Exam Vitals: Vital Signs Temp Pulse Pulse Pulse Resp BP BP 08/02/19 08:00 98.8 F 81 20 08/02/19 06:05 98.1 F 98 18 86/54 08/02/19 04:58 98.0 F 71 18 08/02/19 04:00 77 18 08/02/19 03:42 77 18 81/54 08/02/19 02:45 98.0 F 85 18 87/53 08/02/19 00:00 98.1 F 77 18 92/59 08/01/19 20:00 98.7 F 77 18 113/75 08/01/19 18:38 76 16 97/59 08/01/19 17:40 78 16 102/68 08/01/19 16:53 88 16 93/56 08/01/19 16:23 73 16 93/66 08/01/19 15:53 80 16 105/62 08/01/19 15:38 80 16 101/65 08/01/19 15:30 16 08/01/19 15:21 88 16 101/65 08/01/19 15:08 98.6 F 78 16 111/65 08/01/19 13:11 78 17 93/41 08/01/19 13:00 86 17 109/53 08/01/19 12:40 88 17 111/76 08/01/19 12:26 87 16 116/67 08/01/19 12:00 79 17 116/82 08/01/19 11:31 80 17 111/78 BP Pulse Ox 08/02/19 08:00 95/52 98 08/02/19 06:05 82/48 94 L 08/02/19 04:58 97/60 95 08/02/19 04:00 08/02/19 03:42 100 08/02/19 02:45 86/49 95 08/02/19 00:00 96 08/01/19 20:00 99 08/01/19 18:38 98 08/01/19 17:40 98 08/01/19 16:53 98 08/01/19 16:23 97 08/01/19 15:53 98 08/01/19 15:38 97 08/01/19 15:30 08/01/19 15:21 97 08/01/19 15:08 96 08/01/19 13:11 98 08/01/19 13:00 97 08/01/19 12:40 99 08/01/19 12:26 100 08/01/19 12:00 100 08/01/19 11:31 99 Intake and Output 08/01/19 08/02/19 08/02/19 22:59 06:59 14:59 Intake Total 600 800 Output Total 150 Balance -150 600 800 Intake: IV 800 Sodium Chloride 0.9% 1, 800 000 ml @ 100 mls/hr IV . Q10H [facility] Rx#:[id number] Intake, IV Titration 600 Amount Sodium Chloride 0.9% 1, 600 000 ml @ 75 mls/hr IV . [id number] [facility] Rx#:[id number] Output: Urine 150 Other: Voiding Method Toilet Toilet Toilet Urinal Urinal Urinal # Voids 1 Weight 76.657 kg 86.7 kg Results CBC & Chem 7: 08/02/19 05:45 08/02/19 05:45 Labs: Abnormal Lab Results - Last 24 Hours (Table) 08/01/19 08/01/19 08/01/19 Range/Units 11:07 11:07 17:32 RBC (4.30-5.90) m/uL Hgb (13.0-17.5) gm/dL Hct (39.0-53.0) % Plt Count (150-450) k/uL BUN (9-20) mg/dL Creatinine (0.66-1.25) mg/dL Glucose 123 H (74-99) mg/dL AST 93 H (17-59) U/L Troponin I 15.000 H* 25.100 H* (0.000-0.034) ng/mL Triglycerides (<150) mg/dL HDL Cholesterol (40-60) mg/dL 08/01/19 08/02/19 08/02/19 Range/Units 22:44 05:45 05:45 RBC 3.59 L (4.30-5.90) m/uL Hgb 11.3 L (13.0-17.5) gm/dL Hct 33.4 L (39.0-53.0) % Plt Count 133 L (150-450) k/uL BUN 7 L (9-20) mg/dL Creatinine 0.63 L (0.66-1.25) mg/dL Glucose 107 H (74-99) mg/dL AST (17-59) U/L Troponin I 33.500 H* (0.000-0.034) ng/mL Triglycerides 163 H (<150) mg/dL HDL Cholesterol 24 L (40-60) mg/dL
--- NOTE | 2019-08-02 21:37 | P.CONS ---
History of Present Illness - Reason for Consult Consult date: 08/02/19 myopericarditis Requesting physician: Edmond Nicolas - Chief Complaint chest pain x 1 day - History of Present Illness Patient is a 28-year-old male presenting to the ER yesterday morning with chief complaints of chest pain that apparently started yesterday when he woke up patient described the pain to be a pressure-like in the center of the chest and almost 10 out of 10 in severity with associated shortness of breath and hard to take a deep breath no significant radiation of this pain in this patient apparently did have similar symptoms in 2006 at that time was diagnosed with apparent otitis patient on arrival to the ER afebrile and the patient has been afebrile throughout his hospital stay he did have mildly worsened 12.8 yesterday has normalized subsequently patient did have a troponin of 15,000 patient was taken to the [facility] and is status post angiogram health with gout and evidence of coronary artery disease echocardiogram did not show any pericardial effusion subsequently did have a CT angiogram that was negative for PE and did not show any pericardial effusion patient has been started on colchicine infectious disease has been consulted for further management and concern for possible myopericarditis. Patient overall feeling much better today pain is down to about 3 out of 10 and no radiation patient denies having any URI symptoms or any diarrhea and denies having any sick contact at home patient does work in the [employer] business and to come across many people on a daily basis. Review of Systems Positive point has been mentioned in HPI rest of the systems are negative 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 Past Anesthesia/Blood Transfusion Reactions: No Reported Reaction Past Psychological History: No Psychological Hx Reported Smoking Status: Current every day smoker Past Alcohol Use History: None Reported Additional Past Alcohol Use History / Comment(s): PATIENT STATES HAS SMOKING CESSATION INFORMATION AND HAS ALCOHOLIC DRINK ABOUT EVERY 6 MONTHS, AND STATES TRIED MARIJAUNA ONE TIME Past Drug Use History: None Reported - Past Family History Father Family Medical History: GERD/Reflux, Myocardial Infarction ([place]), Rheumatoid Arth ritis ([place]) Additional Family Medical History / Comment(s): BROKEN BACK DUE TO MVA IN [place], TEETH REMOVED FOR CANCER IN [place] Brother(s) Additional Family Medical History / Comment(s): TWIN BROTHER, SPINA BIFIDA Medications and Allergies Home Medications Medication Instructions Recorded Confirmed Type Acetaminophen-Codeine 300-30mg 1 tab PO QID PRN 08/01/19 08/01/19 History [Tylenol w/codeine #3] Amoxicillin 500 mg PO TID 08/01/19 08/01/19 History Ibuprofen [Motrin] 800 mg PO Q6H PRN 08/01/19 08/01/19 History Allergies Allergy/AdvReac Type Severity Reaction Status Date / Time No Known Allergies Allergy Verified 08/01/19 11:08 Physical Exam Vitals: Vital Signs Temp Pulse Pulse Pulse Resp BP BP 08/02/19 12:00 97.3 F L 67 16 105/64 08/02/19 08:00 98.8 F 81 20 08/02/19 06:05 98.1 F 98 18 86/54 08/02/19 04:58 98.0 F 71 18 08/02/19 04:00 77 18 08/02/19 03:42 77 18 81/54 08/02/19 02:45 98.0 F 85 18 87/53 08/02/19 00:00 98.1 F 77 18 92/59 08/01/19 20:00 98.7 F 77 18 113/75 08/01/19 18:38 76 16 97/59 08/01/19 17:40 78 16 102/68 08/01/19 16:53 88 16 93/56 08/01/19 16:23 73 16 93/66 08/01/19 15:53 80 16 105/62 08/01/19 15:38 80 16 101/65 08/01/19 15:30 16 08/01/19 15:21 88 16 101/65 08/01/19 15:08 98.6 F 78 16 111/65 08/01/19 13:11 78 17 93/41 08/01/19 13:00 86 17 109/53 08/01/19 12:40 88 17 111/76 08/01/19 12:26 87 16 116/67 BP Pulse Ox 08/02/19 12:00 97 08/02/19 08:00 95/52 98 08/02/19 06:05 82/48 94 L 08/02/19 04:58 97/60 95 08/02/19 04:00 08/02/19 03:42 100 08/02/19 02:45 86/49 95 08/02/19 00:00 96 08/01/19 20:00 99 08/01/19 18:38 98 08/01/19 17:40 98 08/01/19 16:53 98 08/01/19 16:23 97 08/01/19 15:53 98 08/01/19 15:38 97 08/01/19 15:30 08/01/19 15:21 97 08/01/19 15:08 96 08/01/19 13:11 98 08/01/19 13:00 97 08/01/19 12:40 99 08/01/19 12:26 100 Intake and Output 08/01/19 08/02/19 08/02/19 22:59 06:59 14:59 Intake Total 600 800 Output Total 150 Balance -150 600 800 Intake: IV 800 Sodium Chloride 0.9% 1, 800 000 ml @ 100 mls/hr IV . Q10H [facility] Rx#:[id number] Intake, IV Titration 600 Amount Sodium Chloride 0.9% 1, 600 000 ml @ 75 mls/hr IV . [id number] [facility] Rx#:[id number] Output: Urine 150 Other: Voiding Method Toilet Toilet Toilet Urinal Urinal Urinal # Voids 1 Weight 76.657 kg 86.7 kg GENERAL DESCRIPTION: Middle-aged male lying in bed, no distress. No tachypnea or accessory muscle of respiration use. HEENT: Shows Pallor , no scleral icterus. Oral mucous membrane is dry. NECK: Trachea central, no thyromegaly. LUNGS: Unlabored breathing. Clear to auscultation anteriorly. No wheeze or crackle. HEART: S1, S2, regular rate and rhythm. ABDOMEN: Soft, no tenderness , guarding or rigidity EXTREMITIES: No edema of feet. SKIN: No rash, no masses palpable. NEUROLOGICAL: The patient is awake, alert, oriented x3, mood and affect normal. Results CBC & Chem 7: 08/02/19 05:45 08/02/19 05:45 Labs: Abnormal Lab Results - Last 24 Hours (Table) 08/01/19 08/01/19 08/02/19 Range/Units 17:32 22:44 05:45 RBC (4.30-5.90) m/uL Hgb (13.0-17.5) gm/dL Hct (39.0-53.0) % Plt Count (150-450) k/uL BUN 7 L (9-20) mg/dL Creatinine 0.63 L (0.66-1.25) mg/dL Glucose 107 H (74-99) mg/dL Troponin I 25.100 H* 33.500 H* (0.000-0.034) ng/mL Triglycerides 163 H (<150) mg/dL HDL Cholesterol 24 L (40-60) mg/dL 08/02/19 Range/Units 05:45 RBC 3.59 L (4.30-5.90) m/uL Hgb 11.3 L (13.0-17.5) gm/dL Hct 33.4 L (39.0-53.0) % Plt Count 133 L (150-450) k/uL BUN (9-20) mg/dL Creatinine (0.66-1.25) mg/dL Glucose (74-99) mg/dL Troponin I (0.000-0.034) ng/mL Triglycerides (<150) mg/dL HDL Cholesterol (40-60) mg/dL Assessment and Plan Assessment: Patient presented to the hospital with acute chest pain in this patient who do give a similar history in 2007 at that time he was diagnosed with a pericarditis with elevated troponin possible component of myopericarditis likely as patient did not have any evidence of coronary disease on cardiac angiogram most of these cases are viral however in view of recurrent episode underlying rheumatologic disorder or infiltrative process need to be ruled out as well, patient current does not look toxic did not have any fever or elevated white count (1) Myopericarditis Current Visit: Yes Status: Acute Code(s): I31.9 - DISEASE OF PERICARDIUM, UNSPECIFIED SNOMED Code(s): 757018361 Plan: 1-we will check coxsackie a and B serology 2-Treatment will be supportive and no need for any antiviral or antibiotics at this point 3-patient may benefit from a tertiary care referral and possible myocardial biopsy to rule out infiltrative or rheumatological process this has been expla ined in detail with the patient in layman terms 4-continue with the colchicine with the patient clinically has responded We will follow on clinical condition and cultures to further adjust medication if needed Thank you for this consultation we will follow the patient along with you Time with Patient: Greater than 30
[2019-08-03] MEDS: NAPROXEN 250 MG TAB PO SCH ×4 (00:32→20:55)
[2019-08-03] MEDS: PANTOPRAZOLE 40 MG TABLET PO SCH (06:38)
[2019-08-03] MEDS: Acetaminophen-Codeine 300-30mg TAB PO PRN ×2 (06:40→15:19)
[2019-08-03] MEDS: HEPARIN SODIUM,PORCINE 5,000 UNIT/ML 1 ML VIAL SQ SCH ×2 (08:41→20:55)
[2019-08-03] MEDS: METOPROLOL TARTRATE 12.5 MG TAB PO SCH ×2 (08:41→20:55)
[2019-08-03] MEDS: COLCHICINE 0.6 MG EACH PO SCH ×2 (08:41→20:55)
[2019-08-03] MEDS: SODIUM CHLORIDE 0.9% 1,000 ML IV SCH (08:48)
--- NOTE | 2019-08-03 09:29 | XR ---
EXAMINATION TYPE: XR chest 2V DATE OF EXAM: 08/03/2019 COMPARISON: Prior chest x-ray 08/01/2019 HISTORY: Chest pain TECHNIQUE: Frontal and lateral views of the chest are obtained. FINDINGS: There is patchy bibasilar increased attenuation present within the lungs. No evident pneum othorax. Heart size may be accentuated by rotation. There are overlying cardiac leads. IMPRESSION: Correlate for pneumonia, atelectasis, difficult to exclude small effusions.
[2019-08-03 11:16] LABS: HIV 1 AB Non-Reactive (Non-Reactive); HIV 2 AB Non-Reactive (Non-Reactive); HIV AB P24 Non-Reactive (Non-Reactive); HIV P24 AG Non-Reactive (Non-Reactive)
[2019-08-03 12:03] LABS: EBV-EA (IgG) <0.2 AI; EBV-EBNA(IgG) >8.0 AI; EBV-VCA (IgG) >8.0 AI; EBV-VCA (IgM) 0.2 AI
--- NOTE | 2019-08-03 12:20 | ECHOF ---
Referral Reason:follow up myopericarditis MEASUREMENTS -------- HEIGHT: 180.3 cm WEIGHT: 85.3 kg BP: 100/58 RVIDd: 2.8 cm (< 3.3) IVSd: 1.2 cm (0.6 - 1.1) LVIDd: 4.3 cm (3.9 - 5.3) LVPWd: 1.1 cm (0.6 - 1.1) IVSs: 1.4 cm LVIDs: 3.1 cm LVPWs: 1.5 cm LA Diam: 3.9 cm (2.7 - 3.8) LAESV Index (A-L): 28.38 ml/m Ao Diam: 3.3 cm (2.0 - 3.7) AV Cusp: 2.6 cm (1.5 - 2.6) MV EXCURSION: 23.384 mm (> 18.000) MV EF SLOPE: 166 mm/s (70 - 150) EPSS: 0.5 cm MV E Landon: 0.92 m/s MV DecT: 83 ms MV A Landon: 0.49 m/s MV E/A Ratio: 1.87 RAP: 5.00 mmHg RVSP: 26.53 mmHg FINDINGS -------- Sinus rhythm. This was a technically good study. The left ventricular size is normal. There is borderline concentric left ventricular hypertrophy. Overall left ventricular systolic function is normal with, an EF between 60 - 65 %. The right ventricle is normal in size. Normal LA size by volume 22+/-6 ml/m2. The right atrium is normal in size. Interatrial and interventricular septum intact. The aortic valve is trileaflet and appears structurally normal. The mitral valve is normal. Mild tricuspid regurgitation present. Right ventricular systolic pressure is normal at < 35 mmHg. Trace/mild (physiologic) pulmonic regurgitation. The aortic root size is normal. Normal inferior vena cava with normal inspiratory collapse consistent with estimated right atrial pre ssure of 5 mmHg. The inferior vena cava is mildly dilated. There is a trivial pericardial effusion present. CONCLUSIONS -------- 1. Sinus rhythm. 2. This was a technically good study. 3. The left ventricular size is normal. 4. There is borderline concentric left ventricular hypertrophy. 5. Overall left ventricular systolic function is normal with, an EF between 60 - 65 %. 6. The right ventricle is normal in size. 7. Normal LA size by volume 22+/-6 ml/m2. 8. The right atrium is normal in size. 9. Interatrial and interventricular septum intact. 10. The aortic valve is trileaflet and appears structurally normal. 11. The mitral valve is normal. 12. Mild tricuspid regurgitation present. 13. Right ventricular systolic pressure is normal at < 35 mmHg. 14. Trace/mild (physiologic) pulmonic regurgitation. 15. The aortic root size is normal. 16. Normal inferior vena cava with normal inspiratory collapse consistent with estimated right atrial pressure of 5 mmHg. 17. The inferior vena cava is mildly dilated. 18. There is a trivial pericardial effusion present. CAT SCANNER OPERATOR: Cathie Max RDCS
[2019-08-03 12:42] LABS: Hepatitis A Antibody IgM Non-Reactive (Non-Reactive); Hepatitis B Core IgM Non-Reactive (Non-Reactive); Hepatitis B Surface Antigen Non-Reactive (Non-Reactive); Hepatitis C IgG Antibody Non-Reactive (Non-Reactive)
[2019-08-03] MEDS: NICOTINE 21MG/24HR PATCH TRANSDERM SCH (18:13)
--- NOTE | 2019-08-03 19:56 | PN ---
PROGRESS NOTE Mr. Beck has myopericarditis. His coronary angiography did not reveal any obstructive CAD of significance. Ejection fraction is normal. He had short run of wide QRS tachycardia more than 24 hours ago. He is on beta blockers, has not had recurrence of arrhythmia. His troponin also went up. He had used marijuana prior to arrival. There was some vasospasm noted on coronary injections, improved with nitroglycerin injection. Vitals are stable. No JVD. Right radial cath site is clean and dry. S1, S2 heard normally. Lungs are clear. Abdomen and lower extremity exam unchanged. No rub is noted. Repeat echo reveals good ejection fraction with trivial pericardial effusion. Plan is to continue nonsteroidals, colchicine, beta blockers. Plan for discharge tomorrow after increased activity today. MMODL / IJN: [id number] /
--- NOTE | 2019-08-03 22:05 | PN ---
PROGRESS NOTE DATE OF SERVICE: 08/03/2019. REASON FOR FOLLOWUP: Myopericarditis, possibly viral. INTERVAL HISTORY: The patient is currently afebrile. The patient is breathing comfortably. The patient's chest pain is currently resolved. Denies having difficulty breathing. No nausea, no vomiting, no abdominal pain or diarrhea. PHYSICAL EXAMINATION: Blood pressure 111/67 with a pulse of 77, temperature 98. He is 97% on room air. General description is a middle-aged male lying in bed in no distress. RESPIRATORY SYSTEM: Unlabored breathing. Clear to auscultation anteriorly. HEART: S1, S2. Regular rate and rhythm. ABDOMEN: Soft. No tenderness. EXTREMITIES: No edema of the feet. LABS: Hemoglobin 11.3, white count 6.1. BUN of 7, creatinine 0.63. workup is negative so far. DIAGNOSTIC IMPRESSION AND PLAN: Patient with myopericarditis in this patient. Currently resolution of his symptoms with colchicine. will be continued. Some serological markers still pending. Continue with supportive care. He may benefit from myocardial biopsy down the road. [QAMARKER ]the patient. Their questions and concerns were answered. MMODL / IJN: [id number] /
--- NOTE | 2019-08-03 22:34 | P.PN ---
Progress Note - Text Progress Note Date: 08/03/19 Chief Complaint: Chest pain History of presenting complaint: This is a pleasant 28-year-old patient who is you have with several family members including his . Follows with Dr. Milly Stone. Patient had an episode of pericarditis in 2006. Patient's 4-year-old child just recovered from pneumonia and respiratory 62 L infection about a week ago. Patient also had dental surgery done on the upper jaw bone removed some tumor done on 2 sessions on Saturday and Saturday. Yesterday he shouldn't felt a pressure-like sensation in his back and shoulders and started noting is anteriorly. He felt a squeezing sensation around the heart. As if a snake was wrapped around it. Short of breath. Perspiring chloric up in the ER. No fever no chills. Patient does smoke half a pack a day. Denies use of any recreational drugs. Admitted with a diagnosis of acute myocarditis. Given significant troponin and EKG changes patient was taken to the cardiac lab support technician. Coronary arteries were normal. Vasospasm was detected by using nitroglycerin. Today-sitting up in bed. Comfortable. Has been up in the hallway. No chest pain. No dizziness no lightheadedness. Review of systems: Was done for constitutional, cardiovascular, GI, pulmonary. relevant finding as above Active Medications Acetaminophen/Codeine Phosphate (Tylenol #3) 1 each PO QID PRN PRN Reason: Pain Last Admin: 08/03/19 15:19 Dose: 1 each Documented by: Colchicine (Colcrys) 0.6 mg PO BID [facility] Last Admin: 08/03/19 20:55 Dose: 0.6 mg Documented by: Heparin Sodium (Porcine) (Heparin) 5,000 unit SQ Q12HR [facility] Last Admin: 08/03/19 20:55 Dose: 5,000 unit Documented by: Sodium Chloride (Saline 0.9%) 1,000 mls @ 50 mls/hr IV .Q20H [facility] Last Admin: 08/03/19 08:48 Dose: Not Given Documented by: Melatonin (Melatonin) 3 mg PO HS PRN PRN Reason: Insomnia Last Admin: 08/01/19 22:48 Dose: 3 mg Documented by: Metoprolol Tartrate (Lopressor) 12.5 mg PO BID [facility] Last Admin: 08/03/19 20:55 Dose: 12.5 mg Documented by: Naproxen (Naprosyn) 250 mg PO TID [facility] Last Admin: 08/03/19 20:55 Dose: 250 mg Documented by: Nicotine (Habitrol 21mg/24hr Patch) 1 patch TRANSDERM DAILY [facility] Last Admin: 08/03/19 18:13 Dose: 1 patch Documented by: Nitroglycerin (Nitrostat) 0.4 mg SUBLINGUAL Q5M PRN PRN Reason: Chest Pain Pantoprazole Sodium (Protonix) 40 mg PO AC-BRKFST [facility] Last Admin: 08/03/19 06:38 Dose: 40 mg Documented by: Physical examination: VITAL SIGNS: 98.2, 65, 17, 97/57, 98% on room air GENERAL: Sitting up in the bed, comfortable EYES: Pupils equal. Conjunctiva normal. HEENT: External appearance of nose and ears normal, oral cavity grossly normal. NECK: JVD not raised; masses not palpable. HEART: First and second heart sounds are normal; no edema. LUNGS: Respiratory rate normal; clear to auscultation. ABDOMEN: Soft, nontender, liver spleen not palpable, no masses palpable. PSYCH: Alert and oriented x3; mood and affect normal. INVESTIGATIONS, reviewed in the clinical context: CMV IgG antibody reactive, She by virus IgG antibody positive,. IgM antibodies are negative Previous studies White count 12.8 hemoglobin 40.1 repeat 7.3 potassium 3.6 BUN 13 creatinine 0.73 Troponin I 15, 25, 33 CRP 61.9 EKG tracing personally reviewed by me-hyperlipidemia T waves and ST elevation with cove elevation in anterior leads 2-D echo-no wall motion abnormality. EF 50-60% Chest x-ray film personally reviewed by me-lung balbuena clear Assessment: -This is a patient presented with 2 days of severe chest pressure with critically elevated troponins and EKG changes, with negative cardiac catheterization some element of coronary vasospasm. Patient's 4-year-old son discovering from a viral infection and pneumonia and also had dental work done. Clinical picture is suggestive of acute myocarditis possibly viral -Coronary vessel spasm -Chronic nicotine dependence cigarette smoker -Cardiac catheterization showing normal coronaries Plan: Care was discussed with Dr. MICHAEL Nicolas. Discussed WITH the patient. Watch the patient will 24 hours. Patient to continued ambulation. If remains stable with no further arrhythmia and clinical picture continues to improve the patient will be discharged home tomorrow.
[2019-08-04] MEDS: Acetaminophen-Codeine 300-30mg TAB PO PRN ×2 (00:18→09:26)
[2019-08-04 03:48] VITALS: TEMP 98.2
[2019-08-04] MEDS: SODIUM CHLORIDE 0.9% 1,000 ML IV SCH (06:14)
[2019-08-04] MEDS: PANTOPRAZOLE 40 MG TABLET PO SCH (06:38)
[2019-08-04] MEDS: NAPROXEN 250 MG TAB PO SCH (09:20)
[2019-08-04] MEDS: NICOTINE 21MG/24HR PATCH TRANSDERM SCH (09:21)
[2019-08-04] MEDS: COLCHICINE 0.6 MG EACH PO SCH (09:21)
[2019-08-04] MEDS: HEPARIN SODIUM,PORCINE 5,000 UNIT/ML 1 ML VIAL SQ SCH (09:21)
[2019-08-04] MEDS: METOPROLOL TARTRATE 12.5 MG TAB PO SCH (09:21)
[2019-08-04 09:29] VITALS: BP 106/62; PULSE 68; RESP 16
--- NOTE | 2019-08-04 12:22 | PN ---
PROGRESS NOTE Mr. Beck is actually doing better today. He has no further chest pain. Vitals are stable. S1-S2 heard normally. There is no rub, murmur, or gallop. Lungs are clear. Abdomen and lower extremity exam unchanged. He presented with a myopericarditis, did not have any obstructive CAD and there were no wall motion abnormalities. Plan is to continue current medications, increase activity, discharge him and I will see him within 2 weeks. MMODL / IJN: [id number] /
--- NOTE | 2019-08-05 00:18 | P.DS ---
Providers Date of admission: 08/01/19 12:00 Expected date of discharge: 08/04/19 Attending physician: Andre Wilson Consults: 08/01/19 11:43 Consult Physician Urgent Consulting Provider: Edmond Nicolas Consult Reason/Comments: pericarditis Do you want consulting provider notified?: Yes 08/02/19 11:43 Consult Physician Routine Consulting Provider: Adams Hart Consult Reason/Comments: myopericarditis Do you want consulting provider notified?: Yes Primary care physician: Jonh Stone [place] Course: Chief Complaint: Chest pain History of presenting complaint: This is a pleasant 28-year-old patient who is you have with several family members including his . Follows with Dr. Milly Stone. Patient had an episode of pericarditis in 2006. Patient's 4-year-old child just recovered from pneumonia and respiratory 62 L infection about a week ago. Patient also had dental surgery done on the upper jaw bone removed some tumor done on 2 sessions on Saturday and Saturday. Yesterday he shouldn't felt a pressure-like sensation in his back and shoulders and started noting is anteriorly. He felt a squeezing sensation around the heart. As if a snake was wrapped around it. Short of breath. Perspiring chloric up in the ER. No fever no chills. Patient does smoke half a pack a day. Denies use of any recreational drugs. Admitted with a diagnosis of acute myocarditis. Given significant troponin and EKG changes patient was taken to the cardiac screedman/laborer. Coronary arteries were normal. Vasospasm was detected by using nitroglycerin.patient with follow-up with urology. They will arrange for patient to have a myocardial biopsy as an outpatient. Today-off and about. No further symptoms. consultation: Dr. MICHAEL Nicolas from cardiology Dr. Hart from [place] Physical examination: VITAL SIGNS: 98.2, 65, 17, 97/57, 98% on room air GENERAL: Sitting up in the bed, comfortable EYES: Pupils equal. Conjunctiva normal. HEENT: External appearance of nose and ears normal, oral cavity grossly normal. NECK: JVD not raised; masses not palpable. HEART: First and second heart sounds are normal; no edema. LUNGS: Respiratory rate normal; clear to auscultation. ABDOMEN: Soft, nontender, liver spleen not palpable, no masses palpable. PSYCH: Alert and oriented x3; mood and affect normal. INVESTIGATIONS, reviewed in the clinical context: CMV IgG antibody reactive, She by virus IgG antibody positive,. IgM antibodies are negative Previous studies White count 12.8 hemoglobin 40.1 repeat 7.3 potassium 3.6 BUN 13 creatinine 0.73 Troponin I 15, 25, 33 CRP 61.9 EKG tracing personally reviewed by me-hyperlipidemia T waves and ST elevation with cove elevation in anterior leads 2-D echo-no wall motion abnormality. EF 50-60% Chest x-ray film personally reviewed by me-lung balbuena clear Assessment: - acute myocarditis possibly viral. -Coronary vessel spasm -Chronic nicotine dependence cigarette smoker -Cardiac catheterization showing normal coronaries disposition: Home Patient Condition at Discharge: Stable Plan - Discharge Summary New Discharge Prescriptions: New Colchicine [Colcrys] 0.6 mg PO BID #60 each Nicotine 21Mg/24Hr Patch [Habitrol] 1 patch TRANSDERM DAILY #14 patch Metoprolol Tartrate [Lopressor] 12.5 mg PO BID #30 tab Naproxen [Naprosyn] 250 mg PO TID #30 tab Continue Acetaminophen-Codeine 300-30mg [Tylenol w/codeine #3] 1 tab PO QID PRN PRN Reason: Pain Discontinued Amoxicillin 500 mg PO TID Ibuprofen [Motrin] 800 mg PO Q6H PRN PRN Reason: Pain Discharge Medication List Acetaminophen-Codeine 300-30mg [Tylenol w/codeine #3] 1 tab PO QID PRN 08/01/19 [History] Colchicine [Colcrys] 0.6 mg PO BID #60 each 08/04/19 [Rx] Metoprolol Tartrate [Lopressor] 12.5 mg PO BID #30 tab 08/04/19 [Rx] Naproxen [Naprosyn] 250 mg PO TID #30 tab 08/04/19 [Rx] Nicotine 21Mg/24Hr Patch [Habitrol] 1 patch TRANSDERM DAILY #14 patch 08/04/19 [Rx] Follow up Appointment(s)/Referral(s): Edmond Nicolas MD [STAFF PHYSICIAN] - 1 Week (office will call with appt.) Jonh Stone DO [Primary Care Provider] - 08/07/19 2:30 pm Patient Instructions/Handouts: Acute Pericarditis (DC) Discharge/Stand Alone Forms: Work/School Release / Restrict Discharge Disposition: HOME SELF-CARE
--- NOTE | 2019-08-05 06:43 | PN ---
PROGRESS NOTE DATE OF SERVICE: 08/04/2019 REASON FOR FOLLOWUP: Myopericarditis, possibly viral versus infiltrative disease. INTERVAL HISTORY: The patient is currently afebrile. He is breathing comfortably. He was seen on rounds this morning. His chest pain has resolved. No shortness of breath or cough. No nausea. No vomiting. No abdominal pain. No diarrhea. PHYSICAL EXAMINATION: Blood pressure is 106/62 with a pulse of 68, temperature 98.2. He is 96% on room air. General description is a young male up in the room in no distress. RESPIRATORY SYSTEM: Unlabored breathing. Clear to auscultation anteriorly. HEART: S1, S2. Regular rate and rhythm. ABDOMEN: Soft. No tenderness. LABS: No new labs have been obtained today. DIAGNOSTIC IMPRESSION AND PLAN: Patient with myopericarditis, question of viral versus infiltrative process. The patient at this time to continue with the colchicine, to which the patient has clinically responded. No need for antiviral or antibiotics. Patient advised to followup with tertiary care for possible myocardial biopsy if the symptoms persist or recur. Questions and concerns were answered. MMODL / IJN: [id number] /
[2019-08-06 11:20] LABS: Parvovirus B-19 IgG Antibodies 4.47 INDEX (<=0.90); Parvovirus B-19 IgM Antibodies 0.32 INDEX (<=0.90)
--- NOTE | 2019-08-07 11:44 | CDI ---
Documentation Clarification Form Date: 08/07/19 From: Regina Bernal Phone: If you have a question about this query, please contact Melanie Stallings, Field Account Director at [phone] between 8am and 5pm. Admit Date: 08/01/19 Discharge Date:08/04/19 Patient Name: Nick Beck Visit Number: [id number] ATTENTION: The Clinical Documentation Specialists (CDI) and [facility] Coding Staff appreciate your assistance in clarifying documentation. Please respond to the clarification below the line at the bottom and electronically sign. The CDI & [facility] Coding staff will review the response and follow-up if needed. Please note: Queries are made part of the Legal Health Record. If you have any questions, please contact the author of this message via ITS. Dear Dr. Bryant Conflicting documentation has been found in the medical record: Myocarditis, possibly viral is documented by your in the H&P, DS and 08/03 progress note. Myopericarditis is documented by cardiology in their consult and progress notes and by infectious disease in their consult and progress ntoes. History/Risk Factors: Past history of pericarditis Clinical Indicators: Chest pain, weak and lightheadded Treatment: 2 liter IV fluid bolus, IV Toradol and IV Dilaudid In your opinion, what is the most clinically appropriate diagnosis for this patient? Acute myocarditis Acute myopericarditis Other explanation of clinical findings Unable to determine (no explanation for clinical findings) Acute myopericarditis, likely viral MTDD
== END 2019-08-04 12:37 | disposition home or self-care (01) | DRG 287 ==
LOC: EC 10:47 → 3SCARD 12:00
PROVIDERS: ADMIT Hospitalist; ATTEND Hospitalist
PROC: B2111ZZ Fluoroscopy of Multiple Coronary Arteries using Low Osmolar Contrast (ICD-10-PCS; 2019-08-01)
PROC: 4A023N7 Measurement of Cardiac Sampling and Pressure, Left Heart, Percutaneous Approach (ICD-10-PCS; principal; 2019-08-01 13:30)
DX: I40.8 Other acute myocarditis (principal); I47.2 Ventricular tachycardia; F17.210 Nicotine dependence, cigarettes, uncomplicated; Z82.49 Family history of ischemic heart disease and other diseases of the circulatory system; Z82.61 Family history of arthritis; Z83.79 Family history of other diseases of the digestive system
CPT/HCPCS: 36415; 71045; 71046; 71275; 80048; 80053; 80061; 80074; 83735; 84145; 84484; 85025; 85379; 85610; 85730; 86140; 86644; 86645; 86658; 86663; 86664; 86665; 86747; 87390; 87502; 93005; 93306; 93458; 94760; 96361; 96365; 96375; 96376; 99285

== ENCOUNTER 2019-08-18 00:09 | Emergency (ER) | payer OTHER ==
[2019-08-18 00:14] VITALS: TEMP 97.9
--- NOTE | 2019-08-18 00:31 | ED ---
Chest Pain HPI - General Chief Complaint: Chest Pain Stated Complaint: Chest Pain Time Seen by Provider: 08/18/19 00:19 Source: patient, family Mode of arrival: wheelchair Limitations: no limitations - History of Present Illness Initial Comments: Nick is a 28-year-old male who was admitted to our hospital earlier this month and diagnosed with myocarditis, and was subsequently discharged home on multiple medications which she reports he's been absolutely compliant with. Patient reports that this evening an episode of palpitations he attempted to bear down and tried deep breathing exercises but felt like he couldn't get his heart rate to slow down which prompted him to come to the ER for evaluation. Patient reports he still expresses mild chest discomfort however this unchanged today. He denies any shortness of breath nausea vomiting or lightheadedness. Denies any diaphoresis. He is discharged from the hospital patient has follow-up with cardiology, he scheduled to have a Holter monitor placed tomorrow and to follow with cardiology again on of this week. - Related Data Home Medications Medication Instructions Recorded Confirmed Acetaminophen-Codeine 300-30mg 1 tab PO QID PRN 08/01/19 08/01/19 [Tylenol w/codeine #3] Previous Rx's Medication Instructions Recorded Colchicine [Colcrys] 0.6 mg PO BID #60 each 08/04/19 Metoprolol Tartrate [Lopressor] 12.5 mg PO BID #30 tab 08/04/19 Naproxen [Naprosyn] 250 mg PO TID #30 tab 08/04/19 Nicotine 21Mg/24Hr Patch [Habitrol] 1 patch TRANSDERM DAILY #14 patch 08/04/19 Allergies Allergy/AdvReac Type Severity Reaction Status Date / Time No Known Allergies Allergy Verified 08/18/19 00:14 Review of Systems ROS Statement: Those systems with pertinent positive or pertinent negative responses have been documented in the HPI. ROS Other: All systems not noted in ROS Statement are negative. EKG Findings - EKG Comments: EKG Findings:: EKG was obtained due to complaint of palpitations, EKG was obtained at 12:23 AM, rate is 95 rhythm is sinus normal axis, normal intervals, CO 148, QRS 96, QTC is 414. There are T-wave inversions in the lateral leads. No ST elevations or depressions no evidence of acute ischemia or infarction. EKG was compared to EKG obtained on August 01, diffuse ST depressions and signs of ischemia have resolved. 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 Past Anesthesia/Blood Transfusion Reactions: No Reported Reaction Past Psychological History: No Psychological Hx Reported Smoking Status: Current every day smoker Past Alcohol Use History: None Reported Past Drug Use History: None Reported - Past Family History Father Family Medical History: GERD/Reflux, Myocardial Infarction ([place]), Rheumatoid Arthritis ([place]) Additional Family Medical History / Comment(s): BROKEN BACK DUE TO MVA IN [place], TEETH REMOVED FOR CANCER IN [place] Brother(s) Additional Family Medical History / Comment(s): TWIN BROTHER, SPINA BIFIDA General Exam - General Exam Comments Initial Comments: Physical Exam GENERAL: Patient is well-developed and well-nourished. Patient is nontoxic and well- hydrated and is in no distress. HENT: Normocephalic, Atraumatic. No maxillary teeth EYES: PERRL, EOMI PULMONARY: Unlabored respirations. No audible rales rhonchi or wheezing was noted. CARDIOVASCULAR: There is a regular rate and rhythm without any murmurs gallops or rubs. ABDOMEN: Soft and nontender with normal bowel sounds. SKIN: Skin is clear with no lesions or rashes and otherwise unremarkable. : Deferred NEUROLOGIC: Patient is alert and oriented x3. Moving all extremities spontaneously MUSCULOSKELETAL: Normal extremities with adequate strength and full range of motion. No lower extremity swelling or edema. No calf tenderness. PSYCHIATRIC: Normal psychiatric evaluation. Limitations: no limitations Course Vital Signs 08/18/19 08/18/19 00:10 01:33 Temperature 97.9 F Pulse Rate 93 80 Respiratory 20 16 Rate Blood Pressure 139/91 130/83 O2 Sat by Pulse 100 99 Oximetry Chest Pain MDM - MDM was seen and evaluated, history is obtained from the patient and review of medical record. Patient diagnosed with pericarditis and August 01 subtotally discharged with a diagnosis of myocarditis with a close cardiology follow-up. Patient had some palpitations today no significant worsening in his pain, EKG looks improved compared to previous, heart rate is less than 100. When resting patient's heart rate lowers to the 60s to 70s. Labs were reviewed patient is again hypokalemic and by mouth potassium was ordered and given. Patient's tro ponin is mildly elevated today at 0.07 however given the setting of known myocarditis in the previous troponins of greater than 30 and then greater than 15 this is not a significant elevation. Patient has close follow-up with cardiology and would prefer discharge home at this time as he is remained asymptomatic while in the emergency department. Closed return parameters, importance of follow-up for stress to the patient he was discharged home in stable condition. Disposition Clinical Impression: Palpitations, Myopericarditis Disposition: HOME SELF-CARE Condition: Stable Additional Instructions: Follow up with your hands and dial inspector for Holter monitor tomorrow and your normal appointment on Return to the ER for any chest pain, palpitations, shortness of breath or new or concerning symptoms. Is patient prescribed a controlled substance at d/c from ED?: No Referrals: Jonh Stone DO [Primary Care Provider] - 1-2 days
--- NOTE | 2019-08-18 00:42 | XR ---
EXAMINATION TYPE: XR chest 2V DATE OF EXAM: 08/18/2019 COMPARISON: 08/03/2019 HISTORY: Chest pain TECHNIQUE: FINDINGS: Heart and mediastinum are normal. Lungs are clear. Diaphragm is normal. Bony thorax appears normal. IMPRESSION: Normal chest. There is clearing of the atelectasis at the lung bases compared to old exam .
[2019-08-18 01:05] LABS: Basophils # (A) 0.1 k/uL (0-0.2); Basophils % (A) 1 %; Eosinophils # (A) 0.4 k/uL (0-0.7); Eosinophils % (A) 4 %; HCT 42.7 % (39.0-53.0); Lymphocytes # (A) 4.4 k/uL (1.0-4.8); Lymphocytes % (A) 43 %; MCH 30.7 pg (25.0-35.0); MCV 90.5 fL (80.0-100.0); Mean Platelet Volume 8.5; Monocytes # (A) 0.7 k/uL (0-1.0); Monocytes % (A) 7 %; Neutrophils # (A) 4.4 k/uL (1.3-7.7); Neutrophils % (A) 43 %; RBC 4.72 m/uL (4.30-5.90); RDW 11.8 % (11.5-15.5); WBC 10.3 k/uL (3.8-10.6)
[2019-08-18 01:06] LABS: Partial Thromboplastin Time 25.9 sec (22.0-30.0); Prothrombin Time 10.7 sec (9.0-12.0)
[2019-08-18 01:12] LABS: ALT 50 U/L (4-49); AST 36 U/L (17-59); African American GFR (CKD) >90 (>60 ml/min/1.73 sqM); Albumin 4.5 g/dL (3.5-5.0); Alkaline Phosphatase 75 U/L (38-126); Anion Gap 10 mmol/L; Blood Urea Nitrogen 19 mg/dL (9-20); Calcium 9.6 mg/dL (8.4-10.2); Carbon Dioxide 25 mmol/L (22-30); Chloride 104 mmol/L (98-107); Glucose 129 mg/dL (74-99); Magnesium 1.9 mg/dL (1.6-2.3); Non-African American GFR(CKD) >90 (>60 ml/min/1.73 sqM); Potassium 3.3 mmol/L (3.5-5.1); Sodium 139 mmol/L (137-145); Total Bilirubin 0.5 mg/dL (0.2-1.3); Total Protein 7.5 g/dL (6.3-8.2)
[2019-08-18 01:14] LABS: HGB 14.5 gm/dL (13.0-17.5); Platelet Count 272 k/uL (150-450)
[2019-08-18] MEDS ORDERED: POTASSIUM CHLORIDE ER 20 MEQ TAB.ER PO STA (01:22)
[2019-08-18 01:34] VITALS: BP 130/83; PULSE 80; RESP 16
== END 2019-08-18 01:49 | disposition home or self-care (01) ==
LOC: EC 00:09
DX: I31.9 Disease of pericardium, unspecified (principal); E87.6 Hypokalemia; F17.200 Nicotine dependence, unspecified, uncomplicated; Z85.830 Personal history of malignant neoplasm of bone; Z82.49 Family history of ischemic heart disease and other diseases of the circulatory system
CPT/HCPCS: 36415; 71046; 80053; 83735; 83880; 84484; 85025; 85610; 85730; 93005; 99285

== ENCOUNTER → 2023-11-04 | Outpatient (CLI) | payer OTHER ==
--- NOTE | 2023-11-25 16:50 | P.CEMON ---
Diagnosis Recurrent palpitations Event monitor shows sinus rhythm Occasional PVCs No nonsustained VT Sinus tachycardia The patient complained of palpitations sinus tachycardia to 111 beats a minute was noted
== END | disposition home or self-care (01) ==
LOC: RADECHMAIN 12:40
PROVIDERS: ATTEND Family Medicine
DX: R00.2 Palpitations (principal); R00.0 Tachycardia, unspecified
CPT/HCPCS: 93270